=== PATIENT | male | born 1965 | race Caucasian/White ===

== ENCOUNTER → 2017-06-18 | Outpatient (CLI) | payer OTHER ==
[~2017-06-18] MED LIST: ALPRAZOLAM0.25 MG PO; AMLODIPINE BESY10 MG PO; BYSTOLIC10 MG PO; CLONIDINE HCL0.1 MG PO; LISINOPRIL10 MG PO; UNKNOWN MEDS
--- NOTE | 2017-06-18 09:41 | Diagnostic Imaging Report ---
PROCEDURE:UPPER GI W/AIR CONTR INDICATION:Chest pain when eating. COMPARISON:None. TECHNIQUE:Double contrast upper GI using effervescent crystals, thin barium, and thick barium. Fluoroscopy time: 1.8 minutes. Cumulative air kerma: 65.11 mGy FINDINGS: The esophagus, stomach and duodenum demonstrate normal caliber and mucosal contour. There is mild to moderate gastroesophageal reflux extending to the midesophagus. There is occasional esophageal spasm. No evidence of hiatal hernia. CONCLUSION: Mild to moderate gastroesophageal reflux associated with intermittent esophageal spasm. Dictated by: Manuel Rosas M.D. on 06/18/2017 at 9:50 Electronically approved by: Manuel Rosas M.D. on 06/18/2017 at 9:50
== END ==
LOC: DX 08:34
PROVIDERS: ATTEND Internal Medicine
DX: K21.9 Gastro-esophageal reflux disease without esophagitis (principal)
CPT/HCPCS: 74246

== ENCOUNTER → 2018-01-20 | Day surgery (SDC) | payer OTHER ==
[2018-01-19 12:54] LABS: BASOPHILS % 0.4 % (0.0-1.0); EOSINOPHILS # (AUTO) 0.1 (0.0-0.4); EOSINOPHILS % 1.5 % (0.0-6.0); HEMATOCRIT 48.6 % (38.2-49.6); HEMOGLOBIN 16.4 g/dL (14.0-18.0); LYMPHOCYTES # (AUTO) 1.6 (1.0-3.2); LYMPHOCYTES % 19.5 % (18.0-39.1); MEAN CORPUSCULAR HEMOGLOBIN 30.7 pg (28-32); MEAN CORPUSCULAR HGB CONC 33.7 g/dL (31-35); MEAN CORPUSCULAR VOLUME 90.8 fL (81-99); MONOCYTES # (AUTO) 0.9 (0.2-0.8); MONOCYTES % 11.1 % (4.4-11.3); NEUTROPHILS # (AUTO) 5.4 (2.1-6.9); NEUTROPHILS % 67.1 % (38.7-80.0); PLATELET COUNT 203 x10e3/uL (140-360); RED BLOOD COUNT 5.35 x10e6/uL (4.3-5.7); RED CELL DISTRIBUTION WIDTH 12.3 % (11.7-14.4)
[2018-01-19 13:13] LABS: ALANINE AMINOTRANSFERASE 38 IU/L (0-55); ALBUMIN/GLOBULIN RATIO 1.3 (0.8-2.0); ALKALINE PHOSPHATASE 54 IU/L (40-150); ANION GAP 11.4 mmol/L (8-16); BLOOD UREA NITROGEN 13 mg/dL (7-26); BUN/CREATININE RATIO 12 (6-25); CALCIUM 9.6 mg/dL (8.4-10.2); CARBON DIOXIDE 30 mmol/L (22-29); CHLORIDE 101 mmol/L (98-107); CHOL/HDL RATIO 3.1 (3.9-4.7); CHOLESTEROL 150 MD/DL (0-199); CREATININE, SERUM 1.13 mg/dL (0.72-1.25); EST GLOMERULAR FILTRATION RATE > 60 ML/MIN (60-); GLUCOSE 95 mg/dL (74-118); HDL CHOLESTEROL 48 MG/DL (40-60); LDL CHOLESTEROL 90 MG/DL (60-130); POTASSIUM 4.4 mmol/L (3.5-5.1); SODIUM 138 mmol/L (136-145); TRIGLYCERIDES 61 MG/DL (0-149)
[~2018-01-20] VITALS: Ht 185.4 cm; Wt 98.9 kg
[~2018-01-20] MED LIST changes: +ALPRAZOLAM 0.5 MG TAB ONE; +AMLODIPINE BESYL5 MG PO; +CRESTOR10 MG PO; +DIPHENHYDRAMINE HCL 25 MG CAP ONE; +FENTANYL CITRATE/PF 100MCG/2 ML INJ ONE; +HEPARIN SOD (PORCINE) 1000 UNIT/ML 30ML ONE; +IOPAMIDOL 370 MG/ML 200 ML INFUS..BTL INJ ONE; +LIDOCAINE HCL 2% LOCAL 20 ML VIAL ONE; +MIDAZOLAM HCL 2 MG/2 ML VIAL ONE; +NITROGLYCERIN/D5W 200 MCG/ML 250 ML ONE; +SODIUM CHLORIDE 0.9% 1000ML 1,000 ML ONE; +VERAPAMIL HCL 2.5 MG/ML 2 ML VIAL ONE
[2018-01-20 07:28] VITALS: BP 136/82
--- NOTE | 2018-01-20 14:07 | Operative Report ---
DATE OF PROCEDURE: January 20, 2018 PROCEDURE: Cardiac catheterization. INDICATIONS: Chest pain. PRE-SEDATION ASSESSMENT: Medical history, social history, previous experience with anesthesia was reviewed. It is documented in the preoperative medical record. Results of relevant diagnostic studies reviewed. Explained the anesthesia risks, complications, benefits, and alternatives discussed. The patient is an appropriate candidate for planned choice of anesthesia. CONSENT: The benefits, risks, complications, and alternatives to the procedure were discussed with patient and informed consent was obtained from the patient prior to the procedure. MEDICATIONS: Please see nursing notes for medications administered during the procedure. PROCEDURE: Patient was brought to the cardiac catheterization laboratory in a fasting state. Right wrist was prepped and draped in a sterile fashion. One percent lidocaine was used to infiltrate the right wrist over the right radial artery. A 6-Yi sheath was placed in the right radial artery using the modified Seldinger technique. Coronary angiography was performed using a [place] preformed catheter to engage both the RCA and OCA. Multiple orthogonal views were obtained of each coronary artery. All catheters were removed over a guidewire. The access site was closed using a TR band. The patient tolerated it without any complications. Estimated blood loss approximately 20 mL. SIGNIFICANT FINDINGS 1. Left main coronary artery: Large caliber and normal. 2. LAD: Large vessel close to the apex. One large diagonal and several small diagonals. No significant CAD. 3. Ramus intermedius: Large vessel. No significant CAD. 4. Left circumflex: Large, nondominant circ. One significant OM branch. No significant CAD. 5. RCA: Large dominant RCA. Medium size RPDA and a very large RPL system. No significant CAD. LVEDP was 16. COMPLICATIONS: None. SPECIMEN REMOVED: None. IMPLANTS: None. ESTIMATED BLOOD LOSS: 20 mL. RECOMMENDATIONS 1. Usual post PCI care until TR band removal. 2. Continue optimal medical therapy and expected control. 3. Call the office for followup in 2 weeks post procedure. Job#: [id number] DELMA
== END | disposition home or self-care (01) ==
LOC: CATH LAB 06:41
PROVIDERS: ATTEND Internal Medicine Interventional Cardiology
DX: I20.8 Other forms of angina pectoris (principal); F41.9 Anxiety disorder, unspecified; E78.5 Hyperlipidemia, unspecified; I10 Essential (primary) hypertension; Z01.812 Encounter for preprocedural laboratory examination
CPT/HCPCS: 36415; 77002; 80053; 80061; 85025; 93458; J1644; J2001; J2250; J7030; Q9967

== ENCOUNTER → 2018-09-29 | Day surgery (SDC) | payer OTHER ==
[~2018-09-29] MED LIST changes: -ALPRAZOLAM 0.5 MG TAB ONE; -DIPHENHYDRAMINE HCL 25 MG CAP ONE; -HEPARIN SOD (PORCINE) 1000 UNIT/ML 30ML ONE; -IOPAMIDOL 370 MG/ML 200 ML INFUS..BTL INJ ONE; -LIDOCAINE HCL 2% LOCAL 20 ML VIAL ONE; -NITROGLYCERIN/D5W 200 MCG/ML 250 ML ONE; +PROPOFOL IV EMULSION 10 MG/ML 50 ML VIAL ONE; -SODIUM CHLORIDE 0.9% 1000ML 1,000 ML ONE; -VERAPAMIL HCL 2.5 MG/ML 2 ML VIAL ONE
--- OUTSIDE RECORDS SUMMARY | 2018-09-29 06:04 | XMS REPORT | Clinical Summary ---
Author Author Roosevelt Hindu Organization [facility] Address Unknown Phone Unavailable Care Team Providers Care Business Communications Instructor Name Role Phone Asked, No Pcp PCP Unavailable Allergies No Known Allergies Medications End Date Status Medication Sig Dispensed Refills Start Date Active lisinopril Take 5 mg by 0 (PRINIVIL,ZESTRIL) 5 MG mouth daily. tablet Active Problems Problem Noted Date Golfer's elbow 02/20/2016 Family History Medical History Relation Name Comments Hypertension Father Relation Name Status Comments Father Social History Date Tobacco Use Types Packs/Day Years Used Never Smoker Alcohol Use Drinks/Week oz/Week Comments Yes 4 times a year Sex Assigned at Date Recorded Not on file Industry Job Start Date Occupation Not on file Not on file Not on file Travel End Travel History Travel Start No recent travel history available. Last Filed Vital Signs Not on file Plan of Treatment Health Maintenance Due Date Last Done Comments COLON CANCER SCREENING 2017 SHINGLES VACCINES (#1) 2017 INFLUENZA VACCINE 01/27/2018 Results Not on fileafter 09/28/2017 Insurance Payer Benefit Subscriber ID Type Phone Address Plan / Group HUMANA HUMANA xxxxxxxxx PPO CHOICE CARE PPO Advance Directives Patient has advance care planning documents on file. For more information, daniel leyva contact: Roosevelt Kaur [address] [place] [address]
--- OUTSIDE RECORDS SUMMARY | 2018-09-29 06:04 | XMS REPORT ---
Author Author Kimberley Baugh [facility] eClinicalWorks Address Unknown Phone Unavailable Care Team Providers Care Workers Compensation Legal Secretary Name Role Phone Kimberley Baugh CP Unavailable Allergies No Known Allergies Problems Problem Type Condition Code Onset Dates Condition Status Problem Allergic rhinitis, pollen J30.1 Active Problem Allergic rhinitis J30.9 Active Problem Allergic rhinitis, seasonal J30.2 Active Problem Disturbance of smell and taste R43.0 Active Problem Sinusitis - Chronic J32.8 Active Problem Chronic rhinitis J31.0 Active Medications No Known Medications Results No Known Results Summary Purpose eClinicalWorks Submission
[2018-09-29 09:55] VITALS: BP 131/83
--- NOTE | 2018-09-29 13:53 | Operative Report ---
DATE OF PROCEDURE: 09/29/2018 SURGEON: Jose Alfredo Meraz MD PROCEDURES: Esophagogastroduodenoscopy with biopsies and colonoscopy with polypectomy. INDICATIONS FOR EGD: History of heartburn and indigestion. INDICATIONS FOR COLONOSCOPY: Colorectal cancer screening. MEDICATIONS: The patient was done under MAC, please see anesthesiologist's note. PROCEDURE IN DETAIL: With the patient in left lateral decubitus position, the flexible fiberoptic Olympus gastroscope was introduced into the esophagus under direct visualization without any difficulty. There were submucosal nodules noted in the cervical esophagus and biopsies were obtained. Some patchy erythema was noted in the distal esophagus. The scope was then advanced with ease into the stomach. Mucosa overlying the antrum and the body revealed some patchy erythema and [id number] edema and biopsies were obtained and sent to stain for H. pylori. Pylorus appeared to be of normal contour and shape, was intubated with ease, and the scope was advanced all the way to the second portion of the duodenum. Biopsies were obtained from the proximal second portion and duodenal bulb to rule out sprue. The scope was then withdrawn back into the stomach and retroflexed. Mucosa overlying the fundus and cardia appeared to be within normal limits. The scope was then straightened out. It was subsequently withdrawn. The patient tolerated procedure well. IMPRESSION: 1. Submucosal nodules cervical esophagus, biopsies obtained. 2. Distal esophagitis, mild. 3. Gastritis, biopsied, biopsies sent to stain for H. pylori. 4. Rule out sprue. PLAN: Follow up histology. Initiate Protonix 40 mg one p.o. q.a.m. a.c. The patient was then turned around, and after adequate lubrication of the anal canal, flexible fiberoptic Olympus colonoscope was inserted into the rectum with ease and advanced all the way to the cecum. It was then withdrawn slowly. Mucosa overlying the cecum, ascending colon, and transverse colon appeared to be within normal limits. One polyp was snared from the descending colon. Diverticular disease was noted to involve the descending and the sigmoid colon. One polyp was snared from the descending colon and polypectomy site was hemoclipped. Diverticular disease was noted to involve the descending and the sigmoid colon. Four polyps were hot biopsied and one polyp was snared from the sigmoid colon. Two polyps were hot biopsied from the rectum. The scope was then retroflexed into the distal rectum and moderate-sized internal hemorrhoids were noted, none of which was actively bleeding. The scope was then straightened out. It was subsequently withdrawn. The patient tolerated procedure well. IMPRESSION: 1. Descending colon polyp, snared and hemoclipped. 2. Diverticulosis. 3. Sigmoid colon polyps x5, one snared and four hot biopsied. 4. Rectal polyps x2, hot biopsied. 5. Internal hemorrhoids, none actively bleeding. PLAN: Followup histology. Initiate high-fiber, low-fat diet. Initiate high-fiber supplement. The patient might benefit from a followup colonoscopy in 3 years. A total of 8 polyps were removed. Jose Alfredo Meraz MD [facility]/[place] /[id number] cc: MD Fermin Beltran MD
== END | disposition home or self-care (01) ==
LOC: OR 06:01
PROVIDERS: ATTEND Internal Medicine Gastroenterology
DX: Z12.11 Encounter for screening for malignant neoplasm of colon (principal); K30 Functional dyspepsia; K21.0 Gastro-esophageal reflux disease with esophagitis; I10 Essential (primary) hypertension; F41.9 Anxiety disorder, unspecified; K29.70 Gastritis, unspecified, without bleeding; K63.5 Polyp of colon; K57.30 Diverticulosis of large intestine without perforation or abscess without bleeding; K62.1 Rectal polyp; K64.8 Other hemorrhoids; Z01.810 Encounter for preprocedural cardiovascular examination; D12.5 Benign neoplasm of sigmoid colon; D12.4 Benign neoplasm of descending colon
CPT/HCPCS: 43239; 45384; 45385; 93005; J2250; J2704; 45378

== ENCOUNTER 2019-12-22 16:29 | Inpatient (IN) | payer OTHER ==
[~2019-12-22] VITALS: Ht 190.5 cm; Wt 98.9 kg
[~2019-12-22 16:29] MED LIST changes: -FENTANYL CITRATE/PF 100MCG/2 ML INJ ONE; -MIDAZOLAM HCL 2 MG/2 ML VIAL ONE; +PANTOPRAZOLE SO40 MG PO; -PROPOFOL IV EMULSION 10 MG/ML 50 ML VIAL ONE
[2019-12-22] MEDS ORDERED: CEFEPIME 1GM/NS 0.9% 50 ML 50 ML IV SCH (17:05)
[2019-12-22] MEDS ORDERED: VANCOMYCIN 1GM/NS 250 ML 250 ML IV STA (17:05)
[2019-12-22 17:25] LABS: BASOPHILS # (AUTO) 0.1 (0.0-0.1); BASOPHILS % 0.4 % (0.0-1.0); EOSINOPHILS # (AUTO) 0.1 (0.0-0.4); EOSINOPHILS % 0.9 % (0.0-6.0); HEMATOCRIT 44.6 % (38.2-49.6); HEMOGLOBIN 14.9 g/dL (14.0-18.0); LYMPHOCYTES # (AUTO) 0.3 (1.0-3.2); MEAN CORPUSCULAR HEMOGLOBIN 29.2 pg (28-32); MEAN CORPUSCULAR HGB CONC 33.4 g/dL (31-35); MEAN CORPUSCULAR VOLUME 87.5 fL (81-99); MONOCYTES # (AUTO) 1.9 (0.2-0.8); MONOCYTES % 11.8 % (4.4-11.3); NEUTROPHILS # (AUTO) 13.5 (2.1-6.9); NEUTROPHILS % 83.4 % (38.7-80.0); PLATELET COUNT 310 x10e3/uL (140-360); RED CELL DISTRIBUTION WIDTH 14.3 % (11.7-14.4)
--- NOTE | 2019-12-22 17:39 | NUR ---
Patient will require surgical intervention for his abscess. Patient specifically requests Dr. Deyanira Lorenzo to be his surgeon.
[2019-12-22 17:43] LABS: ALANINE AMINOTRANSFERASE 25 IU/L (0-55); ALBUMIN 2.4 g/dL (3.5-5.0); ALBUMIN/GLOBULIN RATIO 0.6 (0.8-2.0); ALKALINE PHOSPHATASE 73 IU/L (40-150); BLOOD UREA NITROGEN 22 mg/dL (7-26); BUN/CREATININE RATIO 19 (6-25); CALCIUM 9.5 mg/dL (8.4-10.2); CARBON DIOXIDE 28 mmol/L (22-29); CHLORIDE 94 mmol/L (98-107); CREATININE, SERUM 1.13 mg/dL (0.72-1.25); EST GLOMERULAR FILTRATION RATE > 60 ML/MIN (60-); GLUCOSE 96 mg/dL (74-118); SODIUM 130 mmol/L (136-145)
--- NOTE | 2019-12-22 17:56 | Emergency Department Note ---
History of Present Illnes History of Present Illness Chief Complaint: General Medicine Complaints History of Present Illness This is a 54 year old male arrived to the ED with complaints of pain over his right buttock- pt states he injects testosterone and his right buttock. Pt states he went to have his infection demarcated and his cellulitis was demarcated Chief Complaint Comment PATIENT IN FROM HOME WITH COMPLAINTS OF CELLULITIS TO RIGHT BUTTOCK; PATIENT STATES [facility]EN [facility] - GOT A COVID SWAB. PATIENT THEN WENT BACK ON Thursday12/21/2019 AND GIVEN ABX AND TOLD TO GO TO THE ER. PATIENT PRESENTS WITH RIGHT BUTTOCK RED AND FIRM, BLACK MARKER ESCAMILLA THE BORDER OF THE CELLULITIS. PATIENT ALERT AND ORIENTED, RESP EVEN AND NONLABORED, APPEARS IN NO DISTRESS, AMBULATORY WITHOUT ASSISTANCE, RATES PAIN 02/05 Historian: Patient Arrival Mode: Car Oracle Database Manager Required: No Onset (how long ago): day(s) Severity: mild Onset quality: gradual Duration (how long): day(s) Timing of current episode: constant Progression: worsening Chronicity: new Past Medical/Family History Physician Review I have reviewed the patient's past medical and family history. Any updates have been documented here. Past Medical History Recent Fever: Yes Clinical Suspicion of Infectio: Yes New/Unexplained Change in Ment: No Past Medical History: Hypertension, Hyperlipedemia Other Medical History: LOW TESTOSTERONE Other Surgery: NECK KNEE FOOT - PLANTAR FASCIITIS 2 SX ON RIGHT SURGERY Family History Family history of heart diseas: No Other Last Tetanus: Unknown Review of Systems Review of Systems Constitutional: Reports no symptoms EENTM: Reports no symptoms Cardiovascular: Reports no symptoms Respiratory: Reports no symptoms Gastrointestinal: Reports no symptoms Genitourinary: Reports no symptoms Musculoskeletal: Reports no symptoms Integumentary: Reports as per HPI Neurological: Reports no symptoms Psychological: Reports no symptoms Endocrine: Reports no symptoms Hematological/Lymphatic: Reports no symptoms Review of other systems: All other systems negative Physical Exam Related Data Allergies: Coded Allergies: No Known Allergies (Unverified , 10/27/15) Triage Vital Signs Vital Signs Date Time Temp Pulse Resp B/P (MAP) Pulse Ox O2 Delivery O2 Flow Rate FiO2 12/22/19 16:40 99.9 105 20 145/85 96 Vital signs reviewed: Yes Physical Exam CONSTITUTIONAL Constitutional: Present well-developed, Present well-nourished HENT HENT: Present normocephalic, Present atraumatic, Present oropharynx clear/moist, Present nose normal HENT L/R: Present left ext ear normal, Present right ext ear normal EYES Eyes: Reports PERRL, Reports conjunctivae normal NECK Neck: Present ROM normal PULMONARY Pulmonary: Present effort normal, Present breath sounds normal CARDIOVASCULAR Cardiovascular: Present regular rhythm, Present heart sounds normal, Present capillary refill normal, Present tachycardia GASTROINTESTINAL Abdominal: Present soft, Present nontender, Present bowel sounds normal GENITOURINARY Genitourinary: Present exam deferred SKIN Skin: Present warm, Present dry, Present other (~24 cm circular abscess over right buttock with superimposed cellulitis, firm no fluctuance, does not extend to groin but tracking towards lateral/anterior aspect of right thigh ) MUSCULOSKELETAL Musculoskeletal: Present ROM normal NEUROLOGICAL Neurological: Present alert, Present oriented x 3, Present no gross motor or sensory deficits PSYCHOLOGICAL Psychological: Present mood/affect normal, Present judgement normal Results Laboratory Laboratory Laboratory Tests Test 12/22/19 17:02 Lab results reviewed: Yes Assessment & Plan Medical Decision Making MDM 52 male arrived to the ED with a right buttock abscess and cellulitis extending to his anterior thigh, patient exam is very remarkable for significant abscess and cellulitis that will require surgical washout. Patient given a dose of a Vancomycin and Cefepime in the ED. Dr. Summers informed. Patient was treated in the ED for high risk of impending sepsis and SEP-1 core measures were completed in the emergency department prior to patient transport. Initial lactic acid was unremarkable. Assessment & Plan Final Impression: (1) Abscess (2) Abscess of buttock, right (3) Cellulitis Depart Disposition: ADMITTED Last Vital Signs Date Time Temp Pulse Resp B/P (MAP) Pulse Ox O2 Delivery O2 Flow Rate FiO2 12/22/19 16:40 99.9 105 20 145/85 96 Home Meds Reported Medications Pantoprazole Sodium* (PROTONIX) 40 Mg Tablet.dr, 40 MG PO DAILY, TAB 06/23/19 Nebivolol Hcl (BYSTOLIC) 10 Mg Tablet, 10 MG PO DAILY, TAB 01/19/18 Amlodipine Besylate (AMLODIPINE BESYLATE) 5 Mg Tablet, 5 MG PO DAILY, #30 TAB 01/19/18 Lisinopril (LISINOPRIL) 10 Mg Tablet, 20 MG PO BID, #30 TAB 01/19/18 Medications in the ED Vancomycin HCl 250 ml @ 166.667 mls/hr NOW STAT IV ; Start 12/22/19 at 17:05; Stop 12/22/19 at 18:34 Cefepime HCl 50 ml @ 100 mls/hr Q24H IV ; Start 12/22/19 at 17:05; Stop 12/29/19 at 17:04 SRI RAMIREZ DO Dec 22, 2019 17:56
--- NOTE | 2019-12-22 19:18 | Diagnostic Imaging Report ---
EXAM: CT Pelvis WITH contrast INDICATION: right buttock cellulitis COMPARISON: CT abdomen and pelvis dated 07/20/2019. TECHNIQUE: Pelvis were scanned utilizing a multidetector helical scanner from the iliac crest to the pubic symphysis after administration of IV contrast. Coronal and sagittal reformations were obtained. Routine protocol was performed. Scan was performed when during portal venous phase. IV CONTRAST: 150 mL of Omnipaque 300 ORAL CONTRAST: Water COMPLICATIONS: None RADIATION DOSE: Total DLP: 548.21 mGy*cm Estimated effective dose: (DLP x 0.015 x size factor) mSv CTDIvol has been reviewed. It is below the limits set by the Radiation Protocol Committee (RPC). FINDINGS: LINES and TUBES: None. GI TRACT: No abnormal distention, wall thickening, or evidence of bowel obstruction. There are diverticula within the colon without evidence of diverticulitis. PELVIC ORGANS/BLADDER: The bladder is underdistended limiting evaluation. LYMPH NODES: No lymphadenopathy. VESSELS: No aortic aneurysm or dissection. PERITONEUM / RETROPERITONEUM: No free air or fluid. BONES: Unremarkable. SOFT TISSUES: There is increased infiltration of subcutaneous fat layer of the right gluteal region compatible with worsening cellulitis. No focal abscess. Small bilateral hydroceles IMPRESSION: Increased infiltration of subcutaneous fat layer of the right gluteal region compatible with worsening cellulitis. No focal abscess. Signed by: Tonny Hooks MD on 12/22/2019 7:14 PM
--- NOTE | 2019-12-22 19:37 | NUR ---
Received report from ER nurse.
--- NOTE | 2019-12-22 19:51 | NUR ---
Patient arrived to the floor via w/c. No c/o at this time.
[2019-12-22 21:00] VITALS: BP 163/93
[2019-12-23] VITALS (9 sets, daily range): BP systolic 120–163; BP diastolic 76–95
--- NOTE | 2019-12-23 | NUR ---
Patient received pain meds for pain to buttocks and leg right. Continue monitor.
[2019-12-23] MEDS ORDERED: HYDROMORPHONE 1MG/1ML INJ IV PRN (00:30)
--- NOTE | 2019-12-23 01:30 | NUR ---
Patient states pain is much better. Continue monitor.
[2019-12-23] MEDS: HYDROMORPHONE 1MG/1ML INJ IV PRN ×4 (01:44→21:59)
[2019-12-23] MEDS: VANCOMYCIN 1GM/NS 250 ML 250 ML IV SCH ×2 (04:30→19:22)
--- NOTE | 2019-12-23 05:00 | NUR ---
S/w Dr Benja Hardy. Patient NPO for possible surgery.
[2019-12-23 05:49] LABS: BASOPHILS # (AUTO) 0.1 (0.0-0.1); BASOPHILS % 0.5 % (0.0-1.0); EOSINOPHILS # (AUTO) 0.2 (0.0-0.4); EOSINOPHILS % 1.2 % (0.0-6.0); HEMATOCRIT 43.1 % (38.2-49.6); HEMOGLOBIN 13.9 g/dL (14.0-18.0); LYMPHOCYTES # (AUTO) 0.5 (1.0-3.2); LYMPHOCYTES % 3.7 % (18.0-39.1); MEAN CORPUSCULAR HEMOGLOBIN 28.9 pg (28-32); MEAN CORPUSCULAR HGB CONC 32.3 g/dL (31-35); MEAN CORPUSCULAR VOLUME 89.6 fL (81-99); MONOCYTES # (AUTO) 1.6 (0.2-0.8); MONOCYTES % 11.9 % (4.4-11.3); NEUTROPHILS # (AUTO) 10.9 (2.1-6.9); NEUTROPHILS % 80.1 % (38.7-80.0); PLATELET COUNT 299 x10e3/uL (140-360); RED BLOOD COUNT 4.81 x10e6/uL (4.3-5.7); RED CELL DISTRIBUTION WIDTH 14.6 % (11.7-14.4)
[2019-12-23 06:08] LABS: ALANINE AMINOTRANSFERASE 25 IU/L (0-55); ALBUMIN 2.4 g/dL (3.5-5.0); ALBUMIN/GLOBULIN RATIO 0.6 (0.8-2.0); ALKALINE PHOSPHATASE 72 IU/L (40-150); ANION GAP 11.7 mmol/L (8-16); BLOOD UREA NITROGEN 16 mg/dL (7-26); BUN/CREATININE RATIO 15 (6-25); CALCIUM 9.1 mg/dL (8.4-10.2); CARBON DIOXIDE 31 mmol/L (22-29); CHLORIDE 96 mmol/L (98-107); CREATININE, SERUM 1.06 mg/dL (0.72-1.25); EST GLOMERULAR FILTRATION RATE > 60 ML/MIN (60-); GLUCOSE 80 mg/dL (74-118); POTASSIUM 3.7 mmol/L (3.5-5.1); SODIUM 135 mmol/L (136-145)
[2019-12-23] MEDS: LISINOPRIL 10 MG TAB PO SCH ×2 (09:00→17:44)
[2019-12-23] MEDS: ATENOLOL 50 MG TAB PO SCH (09:00)
[2019-12-23] MEDS: AMLODIPINE BESYLATE 5 MG TAB PO SCH (09:00)
[2019-12-23] MEDS: PANTOPRAZOLE SOD 40 MG TABEC PO SCH (09:00)
[2019-12-23 10:54] LABS: BAND NEUTROPHILS % (MANUAL) 7 %; EOSINOPHILS % (MANUAL) 1 % (0-7); LYMPHOCYTES % (MANUAL) 5 % (19-48); MONOCYTES % (MANUAL) 14 % (3.4-9.0); NEUTROPHILS % (MANUAL) 73 % (40-74); PLATELET ESTIMATE ADEQUATE; PLATELET MORPHOLOGY COMMENT NORMAL; RBC MORPHOLOGY COMMENT NORMAL
[2019-12-23] MEDS ORDERED: PROPOFOL IV EMULSION 10 MG/ML 20 ML VIAL ONE (11:19)
[2019-12-23] MEDS ORDERED: SEVOFLURANE INHAL SOLN 250 ML PEN BTL ONE (11:19)
[2019-12-23] MEDS ORDERED: EPHEDRINE SULFATE INJ 50 MG/ML VIAL ONE (11:19)
[2019-12-23] MEDS ORDERED: ONDANSETRON HCL INJ 2MG/ML 2ML 2 MG/ML VIAL ONE (11:19)
[2019-12-23] MEDS ORDERED: LIDOCAINE HCL 2% LOCAL INJ 5 ML SDV VIAL INJ ONE (11:19)
--- NOTE | 2019-12-23 12:50 | NUR ---
PT LEFT FOR SURGERY VIA STRETCHER WITH OR TECH, LEFT IN STABLE CONDITION.
[2019-12-23] MEDS ORDERED: BUPIVACAINE 0.25%/EPI 30ML SDV INJ ONE (13:34)
[2019-12-23] MEDS ORDERED: FENTANYL CITRATE/PF 100MCG/2 ML INJ ONE ×2 (14:35→15:06)
--- NOTE | 2019-12-23 15:05 | NUR ---
PT RETURNED FROM SURGERY, PT AWAKE, ALERT, IN STABLE CONDITION.
[2019-12-23] MEDS ORDERED: MIDAZOLAM HCL 2 MG/2 ML VIAL ONE (15:06)
[2019-12-23] MEDS ORDERED: CEFEPIME 1GM/NS 0.9% 50 ML 50 ML IV SCH ×2 (15:30→18:00)
[2019-12-23] MEDS ORDERED: ACETAMINOPHEN 1000 MG/100 ML IV PRN (17:00)
[2019-12-23] MEDS: CLINDAMYCIN PHOS 900MG/ 50ML 50 ML IV SCH (17:45)
[2019-12-23] MEDS ORDERED: SODIUM CHLORIDE 0.9% 250ML 250 ML ONE (17:54)
[2019-12-23] MEDS: CEFEPIME 1GM/NS 0.9% 50 ML 50 ML IV SCH (18:31)
--- NOTE | 2019-12-23 19:00 | NUR ---
change of shift report given to maintenance technician 2nd shift nurse. pt in stable condition.
--- NOTE | 2019-12-23 19:15 | NUR ---
RECEIVED REPORT FROM PREVIOUS NURSE. CALL LIGHT WITHIN REACH. PATIENT IN BED. PATIENT IN NO PAIN OR DISTRESS.
--- NOTE | 2019-12-23 19:31 | Consultation ---
DATE OF CONSULTATION: HISTORY OF PRESENT ILLNESS: Mr. Acuña is a very pleasant 54-year-old who comes in with pain over his right buttock area with redness and swelling. The patient became red and swollen. The patient apparently having redness and swelling of his right buttock. He was seen and ER got COVID tested, given antibiotic but he has come back with above. PAST MEDICAL HISTORY: As above. PAST SURGICAL HISTORY: As above. ALLERGIES: NKA. SOCIAL HISTORY: There is no smoking, drug abuse, or alcohol abuse. MEDICATION LIST: He is currently on vancomycin and cefepime. LABORATORY DATA: Reviewed. Sodium 130, potassium 4.0, creatinine 1.13. His white count is 16.7. PHYSICAL EXAMINATION: GENERAL: He is currently alert and oriented, does not seem to be in acute distress. VITAL SIGNS: Stable, currently afebrile. HEENT: He is not icteric. NECK: Supple. CHEST: Clear. COR: S1 and S2. No S3, S4, or murmur. ABDOMEN: Soft. The patient just came from I and D. IMPRESSION: Abscess. Agree with vancomycin. Agree with cefepime. We will change cefepime to 1 g q. 8. Await culture and sensitivity. Recheck CBC. Recheck Chem panel. We will follow with you. MD ROBBI Collier/ROBLES /[id number]
--- NOTE | 2019-12-23 19:40 | Operative Report ---
DATE OF PROCEDURE: 12/23/2019 SURGEON: Willian Lorenzo MD PREOPERATIVE DIAGNOSIS: Cellulitis and abscess of the right buttock. POSTOPERATIVE DIAGNOSIS: Cellulitis and abscess of the right buttock. OPERATION PERFORMED: Incision and drainage of abscess of the right buttock. ANESTHESIA: General endotracheal. COMPLICATIONS: None. ESTIMATED BLOOD LOSS: Minimal. DESCRIPTION OF PROCEDURE: With the patient lying in bed in the lateral position under good general anesthesia, the right buttocks was prepped with Betadine solution and draped in the usual manner. The fluctuance in the right buttocks was then identified at the top of the buttocks. An incision was made in the center of the fluctuant area, this was carried down to the subcutaneous tissue and an abscess cavity was then entered. Upon entering the cavity, some purulent material and necrotic tissue was encountered. Cultures were taken. There was a large cavity present in this area with a lot of necrotic material and pus, and the bottom part of the cavity were then incised with two separate incisions, so that all three incisions communicated to the main cavity. After this was done, all of the material was suctioned and aspirated, and all the loculations were broken. The wound was then copiously irrigated with dilute Betadine solution. The three incisions were then connected with setons made out of a quarter-inch [place] drain to make sure that the wounds would not close and the cavity was then packed with half-inch iodoform gauze through three holes. A dressing was applied. The sponge, lap, and needle counts were correct. The patient tolerated the procedure well and returned to the recovery room in stable condition. Willian Lorenzo MD JLR/MODL /[id number]
[2019-12-24] VITALS (7 sets, daily range): BP systolic 118–148; BP diastolic 79–93
[2019-12-24] MEDS: CEFEPIME 1GM/NS 0.9% 50 ML 50 ML IV SCH ×3 (01:05→17:57)
[2019-12-24] MEDS: CLINDAMYCIN PHOS 900MG/ 50ML 50 ML IV SCH ×3 (03:20→18:35)
[2019-12-24] MEDS: HYDROMORPHONE 1MG/1ML INJ IV PRN ×3 (03:27→20:44)
[2019-12-24] MEDS: VANCOMYCIN 1GM/NS 250 ML 250 ML IV SCH ×2 (04:25→16:15)
--- NOTE | 2019-12-24 07:00 | NUR ---
RECEIVED PATIENT AWAKE RESTING IN BED NO S/S OF DISTRESS. BED LOW, WHEELS LOCKED, SIDE RAILS X2. CALL LIGHT IN REACH WILL CONTINUE TO MONITOR PATIENT.
--- NOTE | 2019-12-24 07:23 | NUR ---
GAVE BEDSIDE SHIFT REPORT TO ONCOMING NURSE. CALL LIGHT WITHIN REACH. PATIENT IN BED. HOURLY ROUNDING PERFORMED.
[2019-12-24] MEDS: PANTOPRAZOLE SOD 40 MG TABEC PO SCH (09:17)
[2019-12-24] MEDS: ATENOLOL 50 MG TAB PO SCH (09:17)
[2019-12-24] MEDS: AMLODIPINE BESYLATE 5 MG TAB PO SCH (09:17)
[2019-12-24] MEDS: LISINOPRIL 10 MG TAB PO SCH ×2 (09:17→17:57)
[2019-12-24 09:18] LABS: BASOPHILS # (AUTO) 0.1 (0.0-0.1); BASOPHILS % 0.8 % (0.0-1.0); EOSINOPHILS # (AUTO) 0.2 (0.0-0.4); EOSINOPHILS % 1.7 % (0.0-6.0); HEMATOCRIT 42.8 % (38.2-49.6); HEMOGLOBIN 13.8 g/dL (14.0-18.0); LYMPHOCYTES # (AUTO) 0.5 (1.0-3.2); LYMPHOCYTES % 5.1 % (18.0-39.1); MEAN CORPUSCULAR HEMOGLOBIN 29.5 pg (28-32); MEAN CORPUSCULAR HGB CONC 32.2 g/dL (31-35); MEAN CORPUSCULAR VOLUME 91.5 fL (81-99); MONOCYTES # (AUTO) 1.3 (0.2-0.8); MONOCYTES % 12.7 % (4.4-11.3); NEUTROPHILS # (AUTO) 7.3 (2.1-6.9); NEUTROPHILS % 73.7 % (38.7-80.0); PLATELET COUNT 286 x10e3/uL (140-360); RED BLOOD COUNT 4.68 x10e6/uL (4.3-5.7); RED CELL DISTRIBUTION WIDTH 14.6 % (11.7-14.4)
[2019-12-24 09:36] LABS: BLOOD UREA NITROGEN 12 mg/dL (7-26); BUN/CREATININE RATIO 12 (6-25); CALCIUM 8.6 mg/dL (8.4-10.2); CARBON DIOXIDE 31 mmol/L (22-29); CHLORIDE 97 mmol/L (98-107); CREATININE, SERUM 1.02 mg/dL (0.72-1.25); EST GLOMERULAR FILTRATION RATE > 60 ML/MIN (60-); GLUCOSE 104 mg/dL (74-118); SODIUM 134 mmol/L (136-145)
--- NOTE | 2019-12-24 11:00 | Progress Note ---
DATE: SUBJECTIVE: The patient seen and evaluated. Available labs and notes reviewed. Discussed with staff. REVIEW OF SYSTEMS: The patient complains of sweat, but however the patient is anxious because of his pain medication and otherwise no nausea, vomiting, fever, chills, chest pain, shortness of breath, headache, rash, dysuria, cough. Pain is controlled. PHYSICAL EXAMINATION: VITAL SIGNS: Temperature 98.7, pulse 84, respirations 20, and blood pressure 144/93. MEDICATIONS: Reviewed, from ID point of view the patient is on vancomycin, IV cefepime and Cleocin. LABORATORY STUDIES: White count of 9.9, improved from 16.16, hemoglobin 13.8, platelet 286. Sodium 134, potassium 4, creatinine 1.02, total bilirubin, AST, ALT, ALP, and total protein all within normal limits. Serology: Coronavirus PCR in progress. MICROBIOLOGY: Blood culture negative 24 hours. Wound culture was negative on the Gram stain and no organisms seen, and culture is pending. RADIOLOGY STUDIES: No radiology studies available. CT of the pelvis showed increasing infiltration of the subcutaneous fat layer of the right gluteal region compatible with worsening cellulitis. No focal abscess. ASSESSMENT AND PLAN: Cellulitis and abscess, right buttock, status post I and D. currently on local care with a surgical dressing. Followup with the cultures. Monitor the sweats. Continue with antibiotics. Further management of this patient is based on daily findings on laboratory and physical examination. Pain is controlled. Blood pressure controlled per others. Leukocytosis is improved to within normal limit. Follow with coronavirus PCR. Clinically, no acute distress. Gangrene, antibiotics soon depending on the cultures. Please refer to chart for more information. Discussed with Dr. Ann. Dictated by Tonny Kay PA-C (Al) Evelyn Ann MD /MODL /[id number]
--- NOTE | 2019-12-24 13:59 | NUR ---
PT IN SHOWER UNABLE TO DO DOA WILL RETURN TIME PERMITS
--- NOTE | 2019-12-24 19:00 | NUR ---
RECEIVED REPORT FROM PREVIOUS NURSE. CALL LIGHT WITHIN REACH. PATIENT IN BED. BEDSIDE REPORT PERFORMED
[2019-12-25] VITALS (8 sets, daily range): BP systolic 123–146; BP diastolic 82–91
[2019-12-25] MEDS: CEFEPIME 1GM/NS 0.9% 50 ML 50 ML IV SCH ×2 (01:36→08:53)
[2019-12-25] MEDS: CLINDAMYCIN PHOS 900MG/ 50ML 50 ML IV SCH ×2 (02:22→11:44)
[2019-12-25] MEDS: VANCOMYCIN 1GM/NS 250 ML 250 ML IV SCH (03:30)
--- NOTE | 2019-12-25 07:00 | NUR ---
RECEIVED PATIENT AWAKE RESTING IN BED NO S/S OF DISTRESS. BED LOW, WHEELS LOCKED, SIDE RAILS X2. CALL LIGHT IN REACH WILL CONTINUE TO MONITOR PATIENT.
--- NOTE | 2019-12-25 07:09 | NUR ---
GAVE BEDSIDE SHIFT REPORT TO ONCOMING NURSE. CALL LIGHT WITHIN REACH. PATIENT IN BED. HOURLY ROUNDING PERFORMED
[2019-12-25 08:39] LABS: BASOPHILS % 0.4 % (0.0-1.0); EOSINOPHILS # (AUTO) 0.2 (0.0-0.4); EOSINOPHILS % 2.1 % (0.0-6.0); HEMATOCRIT 44.8 % (38.2-49.6); HEMOGLOBIN 14.3 g/dL (14.0-18.0); LYMPHOCYTES # (AUTO) 0.7 (1.0-3.2); LYMPHOCYTES % 8.1 % (18.0-39.1); MEAN CORPUSCULAR HEMOGLOBIN 28.8 pg (28-32); MEAN CORPUSCULAR HGB CONC 31.9 g/dL (31-35); MEAN CORPUSCULAR VOLUME 90.1 fL (81-99); MONOCYTES # (AUTO) 1.3 (0.2-0.8); MONOCYTES % 14.5 % (4.4-11.3); NEUTROPHILS % 65.6 % (38.7-80.0); PLATELET COUNT 328 x10e3/uL (140-360); RED BLOOD COUNT 4.97 x10e6/uL (4.3-5.7); RED CELL DISTRIBUTION WIDTH 14.9 % (11.7-14.4)
[2019-12-25] MEDS: ATENOLOL 50 MG TAB PO SCH (08:53)
[2019-12-25] MEDS: AMLODIPINE BESYLATE 5 MG TAB PO SCH (08:53)
[2019-12-25] MEDS: PANTOPRAZOLE SOD 40 MG TABEC PO SCH (08:53)
[2019-12-25] MEDS: LISINOPRIL 10 MG TAB PO SCH (08:53)
[2019-12-25 08:56] LABS: ANION GAP 13.4 mmol/L (8-16); BLOOD UREA NITROGEN 12 mg/dL (7-26); BUN/CREATININE RATIO 12 (6-25); CALCIUM 9.1 mg/dL (8.4-10.2); CARBON DIOXIDE 29 mmol/L (22-29); CHLORIDE 101 mmol/L (98-107); CREATININE, SERUM 1.01 mg/dL (0.72-1.25); EST GLOMERULAR FILTRATION RATE > 60 ML/MIN (60-); GLUCOSE 90 mg/dL (74-118); POTASSIUM 4.4 mmol/L (3.5-5.1); SODIUM 139 mmol/L (136-145)
[2019-12-25] MEDS: HYDROMORPHONE 1MG/1ML INJ IV PRN ×2 (09:41→23:03)
[2019-12-25] MEDS: CEFAZOLIN SOD 1 GM/NS 50ML 50 ML IV SCH ×2 (14:25→22:12)
[2019-12-25] MEDS: LISINOPRIL 20 MG TAB PO SCH (16:20)
[2019-12-25] MEDS: HYDROCODONE/APAP 7.5MG-325MG 1 EA TAB PO PRN (16:20)
--- NOTE | 2019-12-25 19:25 | NUR ---
BEDSIDE SHIFT REPORT RECEIVED FROM DAY RN. PT IS ALERT AND ORIENTED X3. RESPIRATIONS ARE EVEN AND UNLABORED. TELE ON. 20G SL IN LEFT FA- SITE HEALTHY. CELLULITIS RT BUTTUCK EDEMA RT HIP PRESENT-DR AWARE. PT DENIES PAIN. PT UP WALKING IN [place]. CALL LIGHT WITHIN REACH. BED LOCKED AND IN LOW POSITION.
[2019-12-26] VITALS (8 sets, daily range): BP systolic 129–145; BP diastolic 72–87
[2019-12-26 05:15] LABS: BASOPHILS # (AUTO) 0.1 (0.0-0.1); EOSINOPHILS # (AUTO) 0.2 (0.0-0.4); EOSINOPHILS % 1.7 % (0.0-6.0); HEMATOCRIT 45.2 % (38.2-49.6); HEMOGLOBIN 14.5 g/dL (14.0-18.0); LYMPHOCYTES % 8.5 % (18.0-39.1); MEAN CORPUSCULAR HEMOGLOBIN 28.8 pg (28-32); MEAN CORPUSCULAR HGB CONC 32.1 g/dL (31-35); MEAN CORPUSCULAR VOLUME 89.7 fL (81-99); MONOCYTES # (AUTO) 1.3 (0.2-0.8); MONOCYTES % 11.3 % (4.4-11.3); NEUTROPHILS # (AUTO) 7.6 (2.1-6.9); NEUTROPHILS % 66.3 % (38.7-80.0); PLATELET COUNT 358 x10e3/uL (140-360); RED BLOOD COUNT 5.04 x10e6/uL (4.3-5.7); RED CELL DISTRIBUTION WIDTH 14.8 % (11.7-14.4)
[2019-12-26] MEDS: HYDROMORPHONE 1MG/1ML INJ IV PRN ×2 (05:17→22:16)
[2019-12-26 05:36] LABS: ANION GAP 12.1 mmol/L (8-16); BLOOD UREA NITROGEN 13 mg/dL (7-26); BUN/CREATININE RATIO 13 (6-25); CALCIUM 9.4 mg/dL (8.4-10.2); CARBON DIOXIDE 30 mmol/L (22-29); CHLORIDE 100 mmol/L (98-107); CREATININE, SERUM 1.02 mg/dL (0.72-1.25); EST GLOMERULAR FILTRATION RATE > 60 ML/MIN (60-); GLUCOSE 91 mg/dL (74-118); POTASSIUM 5.1 mmol/L (3.5-5.1); SODIUM 137 mmol/L (136-145)
[2019-12-26] MEDS: CEFAZOLIN SOD 1 GM/NS 50ML 50 ML IV SCH ×3 (06:01→22:05)
[2019-12-26 06:23] LABS: ALANINE AMINOTRANSFERASE 33 IU/L (0-55); ALBUMIN 2.5 g/dL (3.5-5.0); ALBUMIN/GLOBULIN RATIO 0.6 (0.8-2.0); ALKALINE PHOSPHATASE 55 IU/L (40-150); ANION GAP 14.1 mmol/L (8-16); BLOOD UREA NITROGEN 13 mg/dL (7-26); BUN/CREATININE RATIO 12 (6-25); CALCIUM 9.4 mg/dL (8.4-10.2); CARBON DIOXIDE 29 mmol/L (22-29); CHLORIDE 100 mmol/L (98-107); CREATININE, SERUM 1.06 mg/dL (0.72-1.25); EST GLOMERULAR FILTRATION RATE > 60 ML/MIN (60-); GLUCOSE 93 mg/dL (74-118); MAGNESIUM 1.7 MG/DL (1.3-2.1); POTASSIUM 5.1 mmol/L (3.5-5.1); SODIUM 138 mmol/L (136-145)
[2019-12-26] MEDS: AMLODIPINE BESYLATE 5 MG TAB PO SCH (08:50)
[2019-12-26] MEDS: LISINOPRIL 20 MG TAB PO SCH ×2 (08:51→16:55)
[2019-12-26] MEDS: ATENOLOL 50 MG TAB PO SCH (08:51)
[2019-12-26] MEDS: PANTOPRAZOLE SOD 40 MG TABEC PO SCH (08:51)
[2019-12-26] MEDS: HYDROCODONE/APAP 7.5MG-325MG 1 EA TAB PO PRN (11:14)
--- NOTE | 2019-12-26 11:22 | NUR ---
Dr Benja Hardy here in patient's room, changed dressing on right buttock. patient tolerated well,
--- NOTE | 2019-12-26 11:57 | Progress Note ---
DATE: SUBJECTIVE: The patient was seen and evaluated. Available labs and notes reviewed. Discussed with the patient. Discussed with Dr. Ann. Please refer to chart for more information. REVIEW OF SYSTEMS: No nausea, vomiting, fever, chills, chest pain, shortness of breath, headache, rash, dysuria, or polyuria. PHYSICAL EXAMINATION: VITAL SIGNS: Temperature 97.7, pulse is 80, respirations 20, and blood pressure 142/73. GENERAL: Alert and oriented, in no acute distress. CV: S1, S2. CHEST: Equal expansion, clear to auscultation, in no acute distress. ABDOMEN: Soft. Nontender. Nondistension. HEENT: Moist. No pallor. No JVD. EXTREMITIES: Right buttock area dressed with a surgical dressing. MEDICATIONS: Medications list reviewed. From ID point of view, the patient is on cefazolin. MICROBIOLOGY: Wound culture came back with MSSA. Blood culture negative, 72 hours. RADIOLOGY STUDIES: No new radiology studies available. ASSESSMENT: 1. Sepsis on admission, resolved, right gluteal abscess, status post incision and drainage. 2. Right gluteal cellulitis. 3. Hypertension. 4. Gastroesophageal reflux disease. 5. Pain, improving. PLAN: Antibiotic changed to cefazolin yesterday. Continue to monitor the patient clinically, follow with the labs. Continue with wound care. Further management of this patient is based on daily findings on laboratory and physical examination. Dictated by Tonny Kay PA-C (Al) Evelyn Ann MD /MODL /[id number]
--- NOTE | 2019-12-26 12:30 | NUR ---
Pt. expressed no spiritual or emotional concerns at this time. Orientation And Mobility Specialist provided hospitality and information on how to reach manipulator operator, if needed. No need to follow at this time. OSCAR PROCTOR Orientation And Mobility Specialist Spiritual Care Department O: [phone]
--- NOTE | 2019-12-26 19:24 | NUR ---
Patient received lying in bed. AAO x 4. Patient had no complaints of pain. Respirations even and non labored. Safety measures implemented. Patient instructed to call for assistance when needed. Call light within reach.
[2019-12-27] VITALS (8 sets, daily range): BP systolic 126–153; BP diastolic 81–106
[2019-12-27] MEDS: CEFAZOLIN SOD 1 GM/NS 50ML 50 ML IV SCH (06:22)
--- NOTE | 2019-12-27 06:56 | NUR ---
Shift report given to oncoming nurse.
[2019-12-27] MEDS: LISINOPRIL 20 MG TAB PO SCH ×3 (09:00→17:19)
[2019-12-27] MEDS: ATENOLOL 50 MG TAB PO SCH ×2 (09:00→17:19)
[2019-12-27] MEDS: PANTOPRAZOLE SOD 40 MG TABEC PO SCH (09:00)
[2019-12-27] MEDS: AMLODIPINE BESYLATE 5 MG TAB PO SCH (09:00)
--- NOTE | 2019-12-27 09:58 | Progress Note ---
DATE: SUBJECTIVE: The patient is seen and evaluated, available labs and notes reviewed. Discussed with Dr. Ann. REVIEW OF SYSTEMS: Complaining of loose stool. Otherwise, no fever, chills, nausea, vomiting, fever, headache, rash, cough, or dysuria. MEDICATIONS: Reviewed. From ID point of view, the patient is on cefazolin. LABORATORY STUDIES: White count of 11.45, hemoglobin 14.5, and platelet 358. Sodium 138, potassium 5.1, and creatinine 1.06. Serology: Coronavirus PCR not detected, 12/22/2019. MICROBIOLOGY: Wound culture 12/22, MSSA. Blood culture negative on 12/22/2019. RADIOLOGY STUDIES: No new radiology studies available. PHYSICAL EXAMINATION: VITAL SIGNS: Temperature 97.6, pulse 61, respirations 18, and blood pressure 136/81. GENERAL: Alert and oriented, no acute distress. CV: S1-S2. CHEST: Equal expansion. Clear to auscultation. No acute distress. ABDOMEN: Soft. Nontender. No distention. HEENT: Moist. No pallor. No JVD. EXTREMITIES: Right buttock area surgical site, on local care. ASSESSMENT AND PLAN: 1. Status post sepsis on admission. 2. Right gluteal abscess. 3. Status post incision and drainage of a gluteal abscess. 4. Culture grew methicillin-sensitive Staphylococcus aureus. General Surgery noted. Apparently, the patient is going back to OR today for recurrent further debridement since there is some purulent drainage from the wound. Continue with antibiotic. Follow up with the cultures. Further management of this patient is based on daily findings on laboratory and physical examination. As far as his loose stool, I will add lactobacillus three times a day. Continue to monitor the patient clinically. Follow up with the labs. Refer to chart for more information. Dictated by Tonny Kay PA-C (Al) Evelyn Ann MD /MODL /[id number]
--- NOTE | 2019-12-27 11:42 | NUR ---
patient off the unit for procedure
[2019-12-27] MEDS ORDERED: ACETAMINOPHEN 1000 MG/100 ML IV PRN (13:00)
[2019-12-27] MEDS ORDERED: HYDROCODONE/APAP 7.5MG-325MG 1 EA TAB PO PRN (13:00)
[2019-12-27] MEDS ORDERED: FENTANYL CITRATE/PF 100MCG/2 ML INJ ONE ×2 (13:18→14:56)
--- NOTE | 2019-12-27 13:19 | Operative Report ---
DATE OF PROCEDURE: 12/27/2019 SURGEON: Willian Lorenzo MD PREOPERATIVE DIAGNOSIS: Right buttock abscess. POSTOPERATIVE DIAGNOSIS: Right buttock abscess. OPERATION PERFORMED: Debridement of right buttock abscess. ANESTHESIA: General. COMPLICATIONS: None. ESTIMATED BLOOD LOSS: Minimal. DESCRIPTION OF PROCEDURE: With the patient lying in bed in the lateral position under good general anesthesia, the right buttock was prepped with Betadine solution and draped in the usual manner. Exploration of the previous established wounds and setons revealed there was some purulence coming from the lower down in the buttocks. Another incision was then made at the bottom of the right buttocks, which connected to the abscess cavity, this was then fixed into place with seton, connecting the middle of all the incision and the new incision in the lower buttocks. After this was done, all of the necrotic material was removed. The wound was then copiously irrigated with dilute Betadine solution and saline solution, and was then packed with iodoform gauze. A dressing was applied. The sponge, lap, and needle counts were correct. The patient tolerated the procedure well and returned to the recovery room in stable condition. Willian Lorenzo MD JLR/MODL /[id number]
--- NOTE | 2019-12-27 13:48 | NUR ---
Recvd patient from PACU. AAOx3, Dressing intact on rt buttock, not in any distress, keep monitoring
[2019-12-27] MEDS: HYDROMORPHONE 1MG/1ML INJ IV PRN (13:51)
[2019-12-27] MEDS: CLINDAMYCIN PHOS 900MG/ 50ML 50 ML IV SCH ×2 (13:52→21:53)
[2019-12-27] MEDS ORDERED: PROPOFOL IV EMULSION 10 MG/ML 20 ML VIAL ONE (14:15)
[2019-12-27] MEDS ORDERED: LIDOCAINE HCL 2% LOCAL INJ 5 ML SDV VIAL INJ ONE (14:15)
[2019-12-27] MEDS ORDERED: ONDANSETRON HCL INJ 2MG/ML 2ML 2 MG/ML VIAL ONE (14:15)
[2019-12-27] MEDS ORDERED: SEVOFLURANE INHAL SOLN 250 ML PEN BTL ONE (14:15)
[2019-12-27] MEDS ORDERED: MIDAZOLAM HCL 2 MG/2 ML VIAL ONE (14:56)
[2019-12-27] MEDS: CEFTRIAXONE SOD 2 GM/NS 100 ML 100 ML IV SCH (15:35)
[2019-12-27] MEDS: HYDROCODONE/APAP 7.5MG-325MG 1 EA TAB PO PRN ×2 (15:56→22:08)
--- NOTE | 2019-12-27 16:43 | NUR ---
Nutrition Screen Note RD Recommendation for Physician: - Diet per MD when feasible Plan of Care: RD following, monitoring for tolerance and adequacy Nutrition reason for involvement: Early LOS Primary Diagnose(s): cellulitis of R buttock PMH: no hx documented Ht: 75 in Wt: 218 lb BMI: 27.2 kg/m2 IBW: [address] Assessment: (12/27/19) 54 YOM admitted for cellulitis of the R buttock, pt seen today for LOS. 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 Pt denies wt loss, reports UBW of 220#. Pt denies GI distress. Pt with no questions or concerns at time of visit. Chart reviewed. Labs and meds reviewed. Will continue to monitor. Current Diet: NPO this am for OR Malnutrition Evaluation (12/27/19) The patient does not meet criteria for a specified degree of malnutrition at this time. Will re-evaluate at follow-up as appropriate. Diet Education Needs Assessment: Diet education not indicated. Diet tolerance: tolerating po Nutrition Care Level: low Signed: Audrey Kevin RD, LD, [facility]
[2019-12-27] MEDS: LACTOBACILLUS ACIDOPHILUS CAPSULE PO SCH ×2 (17:19→21:53)
--- NOTE | 2019-12-27 17:19 | NUR ---
PATIENT SAID HE WANT HIS MORNING BP MEDICATIONS THIS TIME.
--- NOTE | 2019-12-27 19:30 | NUR ---
Patient received lying in bed. AAO x 4. Patient had no complaints of pain. Respirations even and non-labored. Dressing to right buttock CDI. Safety measures in place. Patient instructed to call for assistance when needed. Call light within reach.
[2019-12-28] VITALS (9 sets, daily range): BP systolic 119–145; BP diastolic 74–99
[2019-12-28] MEDS: HYDROMORPHONE 1MG/1ML INJ IV PRN ×3 (01:55→23:35)
[2019-12-28 05:55] LABS: BASOPHILS # (AUTO) 0.1 (0.0-0.1); BASOPHILS % 1.1 % (0.0-1.0); EOSINOPHILS # (AUTO) 0.2 (0.0-0.4); HEMOGLOBIN 15.8 g/dL (14.0-18.0); LYMPHOCYTES % 9.1 % (18.0-39.1); MEAN CORPUSCULAR HEMOGLOBIN 29.6 pg (28-32); MEAN CORPUSCULAR HGB CONC 32.2 g/dL (31-35); MEAN CORPUSCULAR VOLUME 91.8 fL (81-99); NEUTROPHILS # (AUTO) 7.8 (2.1-6.9); NEUTROPHILS % 69.4 % (38.7-80.0); PLATELET COUNT 442 x10e3/uL (140-360); RED BLOOD COUNT 5.34 x10e6/uL (4.3-5.7); RED CELL DISTRIBUTION WIDTH 14.7 % (11.7-14.4)
[2019-12-28] MEDS: CLINDAMYCIN PHOS 900MG/ 50ML 50 ML IV SCH ×3 (06:03→21:42)
[2019-12-28 06:06] LABS: CALCIUM 9.8 mg/dL (8.4-10.2); CARBON DIOXIDE 30 mmol/L (22-29); CHLORIDE 99 mmol/L (98-107); EST GLOMERULAR FILTRATION RATE > 60 ML/MIN (60-); GLUCOSE 86 mg/dL (74-118); SODIUM 137 mmol/L (136-145)
[2019-12-28 06:27] LABS: BLOOD UREA NITROGEN 15 mg/dL (7-26); BUN/CREATININE RATIO 15 (6-25)
--- NOTE | 2019-12-28 07:00 | NUR ---
Walking rounds done. Patient resting comfortably. BSSR given to oncoming nurse regarding patient's status.
--- NOTE | 2019-12-28 07:10 | NUR ---
Bedside rounding completed with the off-going nurse . The pt. denies pain or discomfort at this time. Bedrails are up times 2.
[2019-12-28] MEDS: LISINOPRIL 20 MG TAB PO SCH ×2 (09:09→17:03)
[2019-12-28] MEDS: PANTOPRAZOLE SOD 40 MG TABEC PO SCH (09:09)
[2019-12-28] MEDS: LACTOBACILLUS ACIDOPHILUS CAPSULE PO SCH ×3 (09:09→21:00)
[2019-12-28] MEDS: AMLODIPINE BESYLATE 5 MG TAB PO SCH (09:09)
[2019-12-28] MEDS: ATENOLOL 50 MG TAB PO SCH (09:10)
--- NOTE | 2019-12-28 09:32 | Progress Note ---
DATE: SUBJECTIVE: The patient is seen and evaluated. Available labs and notes reviewed. Discussed with Dr. Ann in details. REVIEW OF SYSTEMS: Pain at the site of surgical site. Otherwise, no nausea, vomiting, fever, chills, chest pain, shortness of breath, headache, rash, or dysuria. Loose stool, resolved with lactobacillus. MEDICATIONS: Medication list reviewed. From ID point of view, the patient is on Rocephin and Cleocin. LABORATORY STUDIES: White count of 11.3, hemoglobin 15.5, and platelet 442. Sodium 137, potassium 5, and creatinine 1.0. Toxicology; no new toxicology available. Serology: Coronavirus disease PCR 12/21, not icteric. MICROBIOLOGY: Wound culture showed MSSA on 12/22. No new wound culture in progress. Blood culture negative for five days from 12/22/2019. RADIOLOGY STUDIES: No new radiology studies available. PHYSICAL EXAMINATION: VITAL SIGNS: Temperature 98.2, pulse 85, respirations 18, and blood pressure 119/93. GENERAL: Alert and oriented, no acute distress. CV: S1-S2. CHEST: Equal expansion. Clear to auscultation. No acute distress. ABDOMEN: Soft. Nontender. No distention. HEENT: Moist. No Pallor. No JVD. EXTREMITIES: Right buttock surgical site dressed with surgical dressing. ASSESSMENT AND PLAN: 1. Right buttock abscess, status post repeat incision and drainage yesterday. The patient was started on Cleocin by General Surgery. The patient is already on Rocephin. Culture was MSSA. No new culture is pending as of now from surgical debridement. Wound care per others. 2. Loose stool, resolved-continue with lactobacillus. Continue with IV antibiotics. Continue with pain management. Continue with wound care. Further management of this patient is based on daily findings on laboratory and physical examination. Refer to chart for more information. Discussed with Dr. Ann in details. Dictated by Tonny Kay PA-C (Al) Evelyn Ann MD /MODL /[id number]
[2019-12-28] MEDS: CEFTRIAXONE SOD 2 GM/NS 100 ML 100 ML IV SCH (13:58)
--- NOTE | 2019-12-28 18:56 | NUR ---
Report to the oncoming nurse
--- NOTE | 2019-12-28 19:15 | NUR ---
patient received awake, alert, sitting on side of bed. patient admits to pain but refuses pain medication at this time. pm assessment complete. patient instructed to call for assistance when needed.
--- NOTE | 2019-12-28 23:35 | NUR ---
patient medicated with dilaudid 1 mg ivp for c/o right buttock pain 01/05 at this time per patients request.
[2019-12-29 04:00] VITALS: BP 142/86
[2019-12-29] MEDS: CLINDAMYCIN PHOS 900MG/ 50ML 50 ML IV SCH ×3 (05:05→21:39)
[2019-12-29 05:45] LABS: BASOPHILS # (AUTO) 0.1 (0.0-0.1); BASOPHILS % 1.1 % (0.0-1.0); EOSINOPHILS # (AUTO) 0.2 (0.0-0.4); HEMATOCRIT 47.4 % (38.2-49.6); HEMOGLOBIN 15.5 g/dL (14.0-18.0); LYMPHOCYTES # (AUTO) 1.3 (1.0-3.2); LYMPHOCYTES % 12.7 % (18.0-39.1); MEAN CORPUSCULAR HEMOGLOBIN 29.9 pg (28-32); MEAN CORPUSCULAR HGB CONC 32.7 g/dL (31-35); MEAN CORPUSCULAR VOLUME 91.3 fL (81-99); MONOCYTES # (AUTO) 1.1 (0.2-0.8); MONOCYTES % 10.8 % (4.4-11.3); NEUTROPHILS # (AUTO) 6.9 (2.1-6.9); NEUTROPHILS % 65.7 % (38.7-80.0); PLATELET COUNT 450 x10e3/uL (140-360); RED BLOOD COUNT 5.19 x10e6/uL (4.3-5.7); RED CELL DISTRIBUTION WIDTH 14.6 % (11.7-14.4)
[2019-12-29 06:10] LABS: ANION GAP 12.6 mmol/L (8-16); BLOOD UREA NITROGEN 12 mg/dL (7-26); BUN/CREATININE RATIO 11 (6-25); CALCIUM 9.5 mg/dL (8.4-10.2); CARBON DIOXIDE 28 mmol/L (22-29); CHLORIDE 99 mmol/L (98-107); CREATININE, SERUM 1.06 mg/dL (0.72-1.25); EST GLOMERULAR FILTRATION RATE > 60 ML/MIN (60-); GLUCOSE 88 mg/dL (74-118); POTASSIUM 4.6 mmol/L (3.5-5.1); SODIUM 135 mmol/L (136-145)
--- NOTE | 2019-12-29 07:00 | NUR ---
Received the pt. in bed awake and without complaint or concern at this time.
[2019-12-29 07:45] VITALS: BP 127/75
[2019-12-29] MEDS: AMLODIPINE BESYLATE 5 MG TAB PO SCH (08:27)
[2019-12-29] MEDS: LISINOPRIL 20 MG TAB PO SCH ×2 (08:27→17:25)
[2019-12-29] MEDS: PANTOPRAZOLE SOD 40 MG TABEC PO SCH (08:27)
[2019-12-29] MEDS: LACTOBACILLUS ACIDOPHILUS CAPSULE PO SCH ×3 (08:27→21:00)
[2019-12-29] MEDS: ATENOLOL 50 MG TAB PO SCH (08:28)
[2019-12-29] MEDS: HYDROMORPHONE 1MG/1ML INJ IV PRN ×3 (08:50→22:00)
[2019-12-29 09:30] VITALS: BP 127/75
[2019-12-29 12:01] VITALS: BP 132/88
[2019-12-29 12:32] LABS: EOSINOPHILS % (MANUAL) 2 % (0-7); LYMPHOCYTES % (MANUAL) 10 % (19-48); MONOCYTES % (MANUAL) 8 % (3.4-9.0); NEUTROPHILS % (MANUAL) 79 % (40-74)
--- NOTE | 2019-12-29 14:37 | NUR ---
Spoke with EDDIE Vigil, states they are arranging outpatient IV abx thru Dr. Ann's office.
--- NOTE | 2019-12-29 14:46 | NUR ---
The pt. has been consented for PICC placement.
[2019-12-29 16:31] VITALS: BP 135/92
--- NOTE | 2019-12-29 16:49 | Progress Note ---
DATE: SUBJECTIVE: The patient is seen and evaluated. Available labs and notes reviewed. REVIEW OF SYSTEMS: No nausea, vomiting, fever, chills, chest pain, or shortness of breath. PHYSICAL EXAMINATION: VITAL SIGNS: Temperature 97.8, pulse 75, respirations 20, and blood pressure 132/88. GENERAL: Alert and oriented. No acute distress. CV: S1 and S2. CHEST: Equal expansion. Clear to auscultation. No acute distress. ABDOMEN: Soft and nontender. No distention. HEENT: Moist. No pallor. No JVD. EXTREMITIES: Surgical site seen still with pus drainage. The patient remains with [place] drain. MEDICATIONS: Reviewed and from ID point of view, the patient is on clindamycin. LABORATORY STUDIES: White count of 10.53, hemoglobin is 15.5 with a platelet count of 450. Sodium 135, potassium 4.6, and creatinine 1.06. MICROBIOLOGY: Wound culture, MSSA. Blood culture negative. ASSESSMENT AND PLAN: Status post incision and drainage of right buttock area, status post repeat of incision and drainage. Wound culture is methicillin-sensitive Staphylococcus aureus, currently on Cleocin. Discharge planning in progress. We will set up the patient with Cubicin for 2 weeks. Re-insert the PICC line. Further management of this patient is based on daily findings on laboratory and physical examination. Dictated by Tonny Kay PA-C (Al) Evelyn Ann MD /MODL /[id number]
--- NOTE | 2019-12-29 19:15 | NUR ---
patient received awake, alert, lying quietly in bed. no c/o pain noted. new rash noted to face and upper back. pain ri right shoulder when moving it. pm assessment complete. patient instructed to call for assistance when needed.
[2019-12-29 20:00] VITALS: BP 126/76
--- NOTE | 2019-12-29 20:55 | NUR ---
left upper arm picc placed at this time. cxr ordered for picc line placement at this time.
--- NOTE | 2019-12-29 21:39 | Diagnostic Imaging Report ---
EXAMINATION: CHEST XRAY LINE PLACEMENT INDICATION: ^picc line placement COMPARISON: None FINDINGS: AP view TUBES and LINES: A left upper extremity PICC terminates in the mid SVC. LUNGS: Lungs are well inflated. Lungs are clear. There is no evidence of pneumonia or pulmonary edema. PLEURA: No pleural effusion or pneumothorax. HEART AND MEDIASTINUM: The cardiomediastinal silhouette is unremarkable. BONES AND SOFT TISSUES: No acute osseous lesion. Soft tissues are unremarkable. UPPER ABDOMEN: No free air under the diaphragm. IMPRESSION: The left upper extremity PICC terminates in the mid SVC. Signed by: Ezekiel Martinez MD on 12/29/2019 9:35 PM
--- NOTE | 2019-12-29 21:47 | NUR ---
picc line placement confirmed and is ok to use per picc line nurse.
--- NOTE | 2019-12-29 22:00 | NUR ---
patient medicated with dilaudid 1mg ivp for c/o pain to right buttock 6/10 at this time per patients request.
[2019-12-30] VITALS (9 sets, daily range): BP systolic 112–149; BP diastolic 63–89
[2019-12-30] MEDS ORDERED: KETOROLAC TROMETHAMINE 30 MG/ML VIAL IV STA ×2 (04:34→04:36)
--- NOTE | 2019-12-30 04:45 | NUR ---
Dr. Summers here to see patient and he was made aware of patient right shoulder pain. patient medicated with toradol 30mg ivp x 1 per orders.
--- NOTE | 2019-12-30 04:50 | NUR ---
am labs drawn from left upper arm picc line at this time without difficulty.
[2019-12-30 05:00] LABS: BASOPHILS # (AUTO) 0.1 (0.0-0.1); BASOPHILS % 0.8 % (0.0-1.0); EOSINOPHILS # (AUTO) 0.1 (0.0-0.4); EOSINOPHILS % 1.4 % (0.0-6.0); LYMPHOCYTES # (AUTO) 1.2 (1.0-3.2); LYMPHOCYTES % 12.9 % (18.0-39.1); MEAN CORPUSCULAR HEMOGLOBIN 28.9 pg (28-32); MEAN CORPUSCULAR HGB CONC 32.7 g/dL (31-35); MEAN CORPUSCULAR VOLUME 88.6 fL (81-99); MONOCYTES % 10.5 % (4.4-11.3); NEUTROPHILS # (AUTO) 6.5 (2.1-6.9); NEUTROPHILS % 68.5 % (38.7-80.0); PLATELET COUNT 461 x10e3/uL (140-360); RED BLOOD COUNT 5.53 x10e6/uL (4.3-5.7); RED CELL DISTRIBUTION WIDTH 14.4 % (11.7-14.4)
[2019-12-30 05:16] LABS: ANION GAP 11.5 mmol/L (8-16); BLOOD UREA NITROGEN 20 mg/dL (7-26); BUN/CREATININE RATIO 19 (6-25); CALCIUM 9.3 mg/dL (8.4-10.2); CARBON DIOXIDE 30 mmol/L (22-29); CHLORIDE 99 mmol/L (98-107); CREATININE, SERUM 1.05 mg/dL (0.72-1.25); EST GLOMERULAR FILTRATION RATE > 60 ML/MIN (60-); GLUCOSE 89 mg/dL (74-118); POTASSIUM 4.5 mmol/L (3.5-5.1); SODIUM 136 mmol/L (136-145)
[2019-12-30] MEDS: CLINDAMYCIN PHOS 900MG/ 50ML 50 ML IV SCH (05:54)
[2019-12-30] MEDS: PANTOPRAZOLE SOD 40 MG TABEC PO SCH (09:15)
[2019-12-30] MEDS: LACTOBACILLUS ACIDOPHILUS CAPSULE PO SCH ×3 (09:15→20:30)
[2019-12-30] MEDS: ATENOLOL 50 MG TAB PO SCH (09:16)
[2019-12-30] MEDS: AMLODIPINE BESYLATE 5 MG TAB PO SCH (09:16)
[2019-12-30] MEDS: LISINOPRIL 20 MG TAB PO SCH ×2 (09:16→16:27)
--- NOTE | 2019-12-30 10:13 | Progress Note ---
DATE: SUBJECTIVE: The patient is seen and evaluated. Available labs and notes reviewed. REVIEW OF SYSTEMS: No nausea, vomiting, fever, chills, chest pain, shortness of breath, headache, rash, dysuria. Pain is controlled. PHYSICAL EXAMINATION: VITAL SIGNS: Temperature 97.9, pulse 60, respirations 16, blood pressure 134/84. GENERAL: Alert and oriented, no acute distress. CV: S1 and S2. CHEST: Equal expansion. ABDOMEN: Soft, nontender. No distention. HEENT: Moist. No pallor. No JVD. EXTREMITIES: Right buttock area surgical site on local care. MEDICATIONS: Medication list reviewed. From ID point of view, the patient is on Cleocin. LABORATORY STUDIES: White count 9.5, hemoglobin 16, platelet 461. Sodium 136, potassium 4.5, creatinine 1.05. Serology: Coronavirus PCR not detected. MICROBIOLOGY: Wound culture, MSSA. Blood culture negative. RADIOLOGY: Status post PICC line, left upper extremity. ASSESSMENT AND PLAN: 1. Status post incision and drainage of right buttock abscess. 2. Status post redo incision and drainage. 3. Status post PICC line. 4. Pain controlled. We will change antibiotics to Cubicin. Plan is the patient go home with Cubicin for 2 weeks. Monitor the patient clinically and follow with the labs. Please refer to chart for more information. Discussed with Dr. Ann in detail. Dictated by Tonny Kay PA-C (Al) Evelyn Ann MD /MODL /[id number]
--- NOTE | 2019-12-30 11:20 | NUR ---
Per EDDIE Vigil, still pending approval for IV abx at Dr. Ann's office. Will let CM know once approved.
--- NOTE | 2019-12-30 11:36 | NUR ---
Per DARIEL Ponce at Dr. Ann's office, insurance is closed today so they are unable to obtain approval for IV abx.
[2019-12-30] MEDS: HYDROMORPHONE 1MG/1ML INJ IV PRN ×2 (11:58→23:58)
[2019-12-30] MEDS: DAPTOMYCIN 500mg 10ML 500 MG in SODIUM CHLORIDE 0.9% 100 ML IV SCH (12:36)
--- NOTE | 2019-12-30 12:49 | NUR ---
SWAPNA MEJIA AND DR. LOPEZ REGARDING PT D/C PLAN.
--- NOTE | 2019-12-30 12:52 | NUR ---
SIMON TO D/C PT PER DR. Benja MEJIA.
--- NOTE | 2019-12-30 14:01 | NUR ---
SWAPNA MORGAN AND DR. COLÓN OFFICE REGARDING PT D/C PLAN.
--- NOTE | 2019-12-30 19:25 | NUR ---
BEDSIDE SHIFT REPORT GIVEN TO THE METALLURGICAL TESTER RN. PT DENIED FURTHER NEEDS.
--- NOTE | 2019-12-30 22:08 | NUR ---
RECEIVED REPORT FROM PREVIOUS NURSE. CALL LIGHT WITHIN REACH. PATIENT IN BED. ROUNDING PERFORMED. Addendum: 12/30/[address] RN TIME WAS 1914
[2019-12-31] VITALS (9 sets, daily range): BP systolic 120–138; BP diastolic 75–89
--- NOTE | 2019-12-31 07:00 | NUR ---
BEDSIDE SHIFT REPORT RECEIVED FROM THE MEDICAL BILLING AND CODING SPECIALIST RN. EDUCATED PT ABOUT FALL PRECAUTIONS. PT VERBALIZED UNDERSTANDING. CALL LIGHT WITH IN EASY REACH. INSTRUCTED PT TO USE CALL LIGHT FOR ALL THE NEEDS. BED IS LOW AND LOCKED. SIDE RAILS X2. PT DENIES NEEDS AT THIS TIME.
--- NOTE | 2019-12-31 07:08 | NUR ---
GAVE REPORT TO ONCOMING NURSE. CALL LIGHT WITHIN REACH. PATIENT IN BED. HOURLY ROUNDING PERFORMED
[2019-12-31] MEDS: PANTOPRAZOLE SOD 40 MG TABEC PO SCH (08:30)
[2019-12-31] MEDS: AMLODIPINE BESYLATE 5 MG TAB PO SCH (08:30)
[2019-12-31] MEDS: LISINOPRIL 20 MG TAB PO SCH ×2 (08:30→16:34)
[2019-12-31] MEDS: ATENOLOL 50 MG TAB PO SCH (08:30)
[2019-12-31] MEDS: LACTOBACILLUS ACIDOPHILUS CAPSULE PO SCH ×3 (08:30→20:15)
--- NOTE | 2019-12-31 08:53 | Progress Note ---
DATE: SUBJECTIVE: A 54-year-old gentleman came in with a history of right buttock abscess on the injection site. The patient is currently doing well, wants to go home, was awaiting IV antibiotics, has not been delivered. The patient has a PICC line in place. OBJECTIVE: VITAL SIGNS: Temperature is 97.7, pulse is 74, respirations of 20, blood pressure is 127/84, and pulse oximetry of 97%. HEENT: Normocephalic and atraumatic. Pupils are reactive to light and accommodation. CVS: S1 and S2 normal. Regular rate and rhythm. ABDOMEN: Soft, nontender, and nondistended. Right buttock with packing. No breakthrough bleeding visualized. The bandage appears clean. EXTREMITIES: No clubbing. No cyanosis. No edema. MEDICATIONS: Hydromorphone, lactobacillus, lisinopril, daptomycin, amlodipine, and pantoprazole. MICROBIOLOGY: The patient grew out Staph aureus, sensitive to daptomycin. ASSESSMENT: Mr. Sin Whatley with buttock abscess, status post incision and drainage. The patient has a PICC line placed and the patient has to go home on Cubicin, waiting for insurance clearance and the patient can be discharged, and further recommendation per clinical course. Again, can see Dr. Ann as an outpatient basis. MD SARAH Cohn/JODIL /[id number]
[2019-12-31] MEDS: DAPTOMYCIN 500mg 10ML 500 MG in SODIUM CHLORIDE 0.9% 100 ML IV SCH (12:46)
[2019-12-31] MEDS: HYDROMORPHONE 1MG/1ML INJ IV PRN ×2 (15:10→22:38)
--- NOTE | 2019-12-31 16:26 | NUR ---
PT REFUSED TO WEAR TELE MONITOR. PAGED DR. VALDEZ AND INFORMED THE SAME.
--- NOTE | 2019-12-31 19:05 | NUR ---
RECEIVED REPORT FROM PREVIOUS NURSE. CALL LIGHT WITHIN REACH. PATIENT IN BED. ROUNDING PERFORMED.
--- NOTE | 2019-12-31 19:10 | NUR ---
BEDSIDE SHIFT REPORT GIVEN TO THE SENIOR PROCUREMENT SPECIALIST RN. PT DENIED FURTHER NEEDS.
[2020-01-01] VITALS (8 sets, daily range): BP systolic 125–151; BP diastolic 68–97
--- NOTE | 2020-01-01 07:14 | NUR ---
GAVE BEDSIDE SHIFT REPORT TO ONCOMING NURSE. CALL LIGHT WITHIN REACH. PATIENT IN BED. HOURLY ROUNDING PERFORMED
[2020-01-01] MEDS: LISINOPRIL 20 MG TAB PO SCH ×2 (09:41→16:05)
[2020-01-01] MEDS: AMLODIPINE BESYLATE 5 MG TAB PO SCH (09:41)
[2020-01-01] MEDS: LACTOBACILLUS ACIDOPHILUS CAPSULE PO SCH ×3 (09:42→21:23)
[2020-01-01] MEDS: PANTOPRAZOLE SOD 40 MG TABEC PO SCH (09:42)
[2020-01-01] MEDS: ATENOLOL 50 MG TAB PO SCH (09:42)
--- NOTE | 2020-01-01 09:51 | Progress Note ---
DATE: SUBJECTIVE: The patient is a 54-year-old gentleman with a history of buttock abscess status post I and D, awaiting insurance company to give IV antibiotic as an outpatient. The patient's packing has been removed. Pain has been reduced. The patient currently has the wound care, dressing the wound. OBJECTIVE: VITAL SIGNS: Temperature is 98.1, pulse of 57, respirations of 18, blood pressure is 142/91. HEENT: Normocephalic and atraumatic. Pupils reactive. CVS: S1 and S2 normal. Regular rate and rhythm. LUNGS: Clear. BACK: Buttocks with wound sealed. EXTREMITIES: No clubbing, no cyanosis, no edema. IMAGING STUDIES: No imaging studies done. ASSESSMENT: Mr. Sin Acuña with buttock abscess status post incision and drainage. PLAN: The patient has a PICC line. Discharge home when IV antibiotics are available. The patient is currently on lactobacillus and daptomycin. The patient will be discharged on daptomycin as per ID consult. Continue to monitor the patient until discharge. MD SARAH Cohn/JODIL /[id number]
[2020-01-01] MEDS: DAPTOMYCIN 500mg 10ML 500 MG in SODIUM CHLORIDE 0.9% 100 ML IV SCH (12:00)
[2020-01-01] MEDS ORDERED: SODIUM CHLORIDE 0.9% 250ML 250 ML ONE (12:28)
[2020-01-01] MEDS: HYDROMORPHONE 1MG/1ML INJ IV PRN ×2 (18:26→23:18)
--- NOTE | 2020-01-01 19:05 | NUR ---
RECEIVED REPORT FROM PREVIOUS NURSE. CALL LIGHT WITHIN REACH. PATIENT IN BED. ROUNDING PERFORMED
[2020-01-02] MEDS: HYDROMORPHONE 1MG/1ML INJ IV PRN (04:56)
[2020-01-02 05:26] VITALS: BP 130/84
--- NOTE | 2020-01-02 07:03 | NUR ---
GAVE BEDSIDE SHIFT REPORT TO ONCOMING NURSE. CALL LIGHT WITHIN REACH. PATIENT IN BED. HOURLY ROUNDING PERFORMED.
--- NOTE | 2020-01-02 07:20 | Progress Note ---
DATE: SUBJECTIVE: This is a 54-year-old gentleman, status post incision and drainage of the buttock abscess. The patient is doing well. Awaiting discharge with IV antibiotics, awaiting for insurance clearance. OBJECTIVE: VITAL SIGNS: Temperature 98.2, pulse of 55, respirations 18, blood pressure is 130/84. HEENT: Normocephalic, atraumatic. Pupils are reactive. CVS: S1 and S2 normal. Regular rate and rhythm. ABDOMEN: Soft, nontender, and nondistended. Right buttock bandaged. EXTREMITIES: No clubbing, no cyanosis, no edema. LABORATORY VALUES: Have been stable for the last three days and not checked. Microbiology again Staphylococcus aureus, sensitive to current antibiotic daptomycin. PLAN: Discharge home today on IV daptomycin. Continue monitor the patient as an outpatient. The patient is to follow up with Dr. Ann for IV antibiotics on a regular basis. Further recommendation per clinical course. The patient is cleared to be discharged when IV antibiotics are arranged as an outpatient. The patient has a PICC line. MD SARAH Cohn/MODL /[id number]
[2020-01-02 07:30] VITALS: BP 140/61
[2020-01-02 08:15] VITALS: BP 140/61
[2020-01-02] MEDS: ATENOLOL 50 MG TAB PO SCH (09:02)
[2020-01-02] MEDS: LISINOPRIL 20 MG TAB PO SCH (09:02)
[2020-01-02] MEDS: AMLODIPINE BESYLATE 5 MG TAB PO SCH (09:02)
[2020-01-02] MEDS: LACTOBACILLUS ACIDOPHILUS CAPSULE PO SCH (09:02)
[2020-01-02] MEDS: PANTOPRAZOLE SOD 40 MG TABEC PO SCH (09:02)
--- NOTE | 2020-01-02 10:01 | NUR ---
Spoke with DARIEL Ponce at Dr. Ann's office. States pt can come in tomorrow at 11:30. CM printed Dr. Ann's office information and appointment time and gave to pt. [id number] [place] [address]
[2020-01-02 11:10] VITALS: BP 150/73
[2020-01-02] MEDS: DAPTOMYCIN 500mg 10ML 500 MG in SODIUM CHLORIDE 0.9% 100 ML IV SCH (11:27)
--- NOTE | 2020-01-15 07:54 | Discharge Summary ---
DISCHARGE DIAGNOSES: 1. Right buttock abscess, status post incision and drainage. 2. Hypertension. HISTORY OF PRESENT ILLNESS AND HOSPITAL COURSE: The patient is a gentleman, who came in with a right buttock abscess secondary to self-injection of testosterone, where he was placed on IV antibiotics, seen by both Infectious Disease as well as Surgery, who performed an I and D with evacuation of the pus. Wound cultures were obtained. His antibiotics were able to be narrowed down. He did have a second I and D to remove more of the complex plus. Rest of the hospitalization was unremarkable. He was able to be discharged home with IV antibiotics and to follow up with Infectious Disease as well as me. Please see hospital chart for full details. MD DAVIS Adams/ROBLES /[id number]
== END 2020-01-02 12:12 | disposition home or self-care (01) | DRG 854 ==
LOC: ER 16:29 → ERHOLD 17:17 → MED/SURG2 20:30
PROVIDERS: ADMIT Internal Medicine; ATTEND Internal Medicine
PROC: 0J990ZZ Drainage of Buttock Subcutaneous Tissue and Fascia, Open Approach (ICD-10-PCS; principal; 2019-12-23 11:00)
PROC: 0JB70ZZ Excision of Back Subcutaneous Tissue and Fascia, Open Approach (ICD-10-PCS; 2019-12-27)
PROC: 02HV33Z Insertion of Infusion Device into Superior Vena Cava, Percutaneous Approach (ICD-10-PCS; 2019-12-29)
PROC: B548ZZA Ultrasonography of Superior Vena Cava, Guidance (ICD-10-PCS; 2019-12-29)
DX: A41.9 Sepsis, unspecified organism (principal); L02.31 Cutaneous abscess of buttock; I10 Essential (primary) hypertension; E78.5 Hyperlipidemia, unspecified; Z82.49 Family history of ischemic heart disease and other diseases of the circulatory system; K21.9 Gastro-esophageal reflux disease without esophagitis; Z11.59 Encounter for screening for other viral diseases; B95.61 Methicillin susceptible Staphylococcus aureus infection as the cause of diseases classified elsewhere
CPT/HCPCS: 36415; 36569; 71045; 72193; 80048; 80053; 80202; 82948; 83605; 83735; 85025; 87040; 87071; 87075; 87186; 87205; 99284; J0690; J0692; J0696; J1170; J1885; J2001; J2250; J2405; J3010; J3370; J7050; U0002

== ENCOUNTER → 2022-08-29 | Day surgery (SDC) | payer BC, OTHER ==
[2022-08-26 11:52] LABS: BASOPHILS % 0.4 % (0.0-1.0); EOSINOPHILS # (AUTO) 0.1 (0.0-0.4); EOSINOPHILS % 1.8 % (0.0-6.0); HEMATOCRIT 48.4 % (38.2-49.6); HEMOGLOBIN 16.2 g/dL (14.0-18.0); LYMPHOCYTES # (AUTO) 1.2 (1.0-3.2); MEAN CORPUSCULAR HEMOGLOBIN 29.7 pg (28-32); MEAN CORPUSCULAR HGB CONC 33.5 g/dL (31-35); MEAN CORPUSCULAR VOLUME 88.8 fL (81-99); MONOCYTES % 14.2 % (4.4-11.3); NEUTROPHILS # (AUTO) 4.5 (2.1-6.9); NEUTROPHILS % 65.4 % (38.7-80.0); PLATELET COUNT 258 x10e3/uL (140-360); RED BLOOD COUNT 5.45 x10e6/uL (4.3-5.7); RED CELL DISTRIBUTION WIDTH 13.5 % (11.7-14.4)
[2022-08-26 12:07] LABS: ANION GAP 13.9 mmol/L (8-16); BLOOD UREA NITROGEN 12 mg/dL (7-26); BUN/CREATININE RATIO 11 (6-25); CALCIUM 9.6 mg/dL (8.4-10.2); CARBON DIOXIDE 28 mmol/L (22-29); CHLORIDE 99 mmol/L (98-107); CREATININE, SERUM 1.12 mg/dL (0.72-1.25); GLUCOSE 85 mg/dL (74-118); POTASSIUM 3.9 mmol/L (3.5-5.1); SODIUM 137 mmol/L (136-145)
[~2022-08-29] MED LIST changes: +BUPIVACAINE 0.5%/EPI 30 ML SDV INJ ONE; +DEXAMETHASONE SOD PHOS INJ 4 MG/ML SDV ONE; +DEXMEDETOMIDINE HCL 0 ML ONE; +FENTANYL CITRATE/PF 100MCG/2 ML INJ ONE; +GLYCOPYRROLATE INJ 0.2 MG/ML VIAL ONE; +HYDROCODONE/APAP 7.5MG-325MG 1 EA TAB ONE; +HYDROMORPHONE 1MG/1ML INJ ONE; +KETAMINE HCL INJ 50 MG/ML 10 ML VIAL ONE; +LIDOCAINE HCL 2% LOCAL INJ 5 ML SDV VIAL INJ ONE; +MIDAZOLAM HCL 2 MG/2 ML VIAL ONE; +NEOSTIGMINE 1 MG/ML 10ML VIAL ONE; +ONDANSETRON HCL INJ 2MG/ML 2ML 2 MG/ML VIAL ONE; +POVIDONE IODINE 0.05% 0.05 % ML PO ONE; +PROPOFOL IV EMULSION 10 MG/ML 20 ML VIAL ONE; +ROCURONIUM BROMIDE 10 MG/ML 5ML VIAL IV ONE; +SEVOFLURANE INHAL SOLN 250 ML PEN BTL ONE; +SUCCINYLCHOLINE CHLORIDE 20 MG/ML 10ML VIAL ONE; +SUGAMMADEX SODIUM 200 MG/2 ML VIAL IV ONE
[2022-08-29 11:30] VITALS: BP 110/72
== END | disposition home or self-care (01) ==
LOC: OR 06:33
PROVIDERS: ATTEND Surgery
DX: K43.6 Other and unspecified ventral hernia with obstruction, without gangrene (principal); I10 Essential (primary) hypertension; E78.5 Hyperlipidemia, unspecified; I49.3 Ventricular premature depolarization; K21.9 Gastro-esophageal reflux disease without esophagitis; Z01.810 Encounter for preprocedural cardiovascular examination; Z01.812 Encounter for preprocedural laboratory examination; Z20.822 Contact with and (suspected) exposure to COVID-19; Z79.899 Other long term (current) drug therapy
CPT/HCPCS: 0223U; 36415; 49594; 80048; 85025; 93005; C1781; J0330; J1100; J1170; J2001; J2250; J2405; J2704; J2710; J3010

== ENCOUNTER → 2022-10-23 | Day surgery (SDC) | payer BC ==
[~2022-10-23] MED LIST changes: -BUPIVACAINE 0.5%/EPI 30 ML SDV INJ ONE; -DEXAMETHASONE SOD PHOS INJ 4 MG/ML SDV ONE; -DEXMEDETOMIDINE HCL 0 ML ONE; -GLYCOPYRROLATE INJ 0.2 MG/ML VIAL ONE; -HYDROCODONE/APAP 7.5MG-325MG 1 EA TAB ONE; -HYDROMORPHONE 1MG/1ML INJ ONE; -KETAMINE HCL INJ 50 MG/ML 10 ML VIAL ONE; +LACTATED RINGER'S 1,000 ML ONE; +METOCLOPRAMIDE HCL 10 MG/2ML VIAL ONE; -NEOSTIGMINE 1 MG/ML 10ML VIAL ONE; +PHENYLEPHRINE HCL 1% 10 MG/ML VIAL ONE; +PROPOFOL IV EMULSION 50 ML IV ONE; -ROCURONIUM BROMIDE 10 MG/ML 5ML VIAL IV ONE; -SEVOFLURANE INHAL SOLN 250 ML PEN BTL ONE; -SUCCINYLCHOLINE CHLORIDE 20 MG/ML 10ML VIAL ONE; -SUGAMMADEX SODIUM 200 MG/2 ML VIAL IV ONE
[2022-10-23 09:25] VITALS: BP 105/79
== END | disposition home or self-care (01) ==
LOC: OR 07:16
PROVIDERS: ATTEND Internal Medicine Gastroenterology
DX: K22.70 Barrett's esophagus without dysplasia (principal); D12.4 Benign neoplasm of descending colon; D12.5 Benign neoplasm of sigmoid colon; K29.50 Unspecified chronic gastritis without bleeding; K63.89 Other specified diseases of intestine; K21.9 Gastro-esophageal reflux disease without esophagitis; K57.30 Diverticulosis of large intestine without perforation or abscess without bleeding; K64.8 Other hemorrhoids; K42.9 Umbilical hernia without obstruction or gangrene; I10 Essential (primary) hypertension; E78.5 Hyperlipidemia, unspecified; Z79.899 Other long term (current) drug therapy
CPT/HCPCS: 43239; 45380; 45385; C9113; J2001; J2250; J2370; J2405; J2704 ×2; J2765; J3010; J7121; 45378

== ENCOUNTER → 2024-10-25 | Day surgery (SDC) | payer BC ==
[2024-10-20 12:44] LABS: BASOPHILS % 0.3 % (0.0-1.0); EOSINOPHILS # (AUTO) 0.1 (0.0-0.4); EOSINOPHILS % 2.3 % (0.0-6.0); HEMATOCRIT 44.8 % (38.2-49.6); HEMOGLOBIN 14.9 g/dL (14.0-18.0); LYMPHOCYTES # (AUTO) 1.3 (1.0-3.2); MEAN CORPUSCULAR HEMOGLOBIN 29.8 pg (28-32); MEAN CORPUSCULAR HGB CONC 33.3 g/dL (31-35); MEAN CORPUSCULAR VOLUME 89.6 fL (81-99); MONOCYTES # (AUTO) 0.8 (0.2-0.8); MONOCYTES % 12.5 % (4.4-11.3); NEUTROPHILS # (AUTO) 3.7 (2.1-6.9); NEUTROPHILS % 62.6 % (38.7-80.0); PLATELET COUNT 232 x10e3/uL (140-360); RED CELL DISTRIBUTION WIDTH 15.7 % (11.7-14.4); WHITE BLOOD COUNT 5.99 x10e3/uL (4.8-10.8)
[2024-10-20 13:06] LABS: ANION GAP 12.1 mmol/L (8-16); CALCIUM 8.4 mg/dL (8.4-10.2); CREATININE, SERUM 1.06 mg/dL (0.72-1.25); POTASSIUM 4.1 mmol/L (3.5-5.1)
[~2024-10-25] MED LIST changes: +ACETAMINOPHEN 1000 MG/100 ML 100 ML IV ONE; +CARVEDILOL12.5 MG PO; +DEXAMETHASONE SOD PHOS INJ 4 MG/ML SDV ONE; +ENTRESTO 49 MG1 EACH PO; -LACTATED RINGER'S 1,000 ML ONE; +LEXAPRO10 MG PO; -METOCLOPRAMIDE HCL 10 MG/2ML VIAL ONE; -PHENYLEPHRINE HCL 1% 10 MG/ML VIAL ONE; -POVIDONE IODINE 0.05% 0.05 % ML PO ONE; +PROPAFENONE HC325 MG PO; -PROPOFOL IV EMULSION 50 ML IV ONE; +SEVOFLURANE INHAL SOLN 250 ML PEN BTL ONE; +SPIRONOLACTONE25 MG PO
[2024-10-25] MEDS: LACTATED RINGER'S 1,000 ML ONE (05:56)
[2024-10-25] MEDS: ACETAMINOPHEN/CODEINE 300MG - 30MG TAB ONE (09:05)
[2024-10-25 09:22] VITALS: BP 111/76; PULSE 79; RESP 17; O2SAT 98
== END | disposition home or self-care (01) ==
LOC: OR 05:39
PROVIDERS: ATTEND Specialist
DX: G56.03 Carpal tunnel syndrome, bilateral upper limbs (principal); I10 Essential (primary) hypertension; E78.5 Hyperlipidemia, unspecified; I49.9 Cardiac arrhythmia, unspecified; E66.9 Obesity, unspecified; M65.332 Trigger finger, left middle finger; M65.331 Trigger finger, right middle finger; Z71.3 Dietary counseling and surveillance; Z71.89 Other specified counseling; Z01.812 Encounter for preprocedural laboratory examination; Z01.818 Encounter for other preprocedural examination; Z79.899 Other long term (current) drug therapy; Z68.32 Body mass index [BMI] 32.0-32.9, adult; Z87.891 Personal history of nicotine dependence
CPT/HCPCS: 29848; 36415; 71046; 80048; 85025; J0131; J0690; J1100; J2003; J2250; J2405; J2704; J3010; J7121